=== PATIENT | female | born 1955 | race Caucasian/White ===

== ENCOUNTER → 2018-03-21 | Outpatient (CLI) | payer BC ==
--- NOTE | 2018-03-21 11:21 | PCVCIMAG ---
APPROVED REPORT Study performed: 03/21/2018 09:58:49 Exam: Stress Echocardiogram Indication: CAD s/p CABG X3 (2016) Patient Location: Echo lab Stress Nurse: Jayde Clark RN Status: routine Ht: 5 ft 5 in HR: 64 bpm BP: 114/60 mmHg Rhythm: NSR Medical History Medical History: Diabetes, Hyperlipidemia Procedure The patient underwent an Exercise Stress Test using the Timmy Protocol. Blood pressure, heart rate, and EKG were monitored. An Echocardiogram was performed by cleaning technician in four stages in quad fashion. At peak stress, four selected images were obtained and placed side by side with resting images for comparison. Stress Test Details Stress Test: Exercise stress testing was performed using a Timmy protocol. HR Resting HR: 64 bpmMax Heart Rate (APMHR): 160 bpm Max HR Achieved: 137 bpmTarget HR (85% APMHR): 136 bpm % of APMHR: 85 Recovery HR: 86 bpm HR response to stress: Normal HR response to stress BP Resting BP: 114/60 mmHg Max BP: 156/60 mmHg Recovery BP: 124/62 mmHg BP response to stress: Normal blood pressure response to stress. ECG Resting ECG: Sinus Rhythm Stress ECG: Sinus Rhythm Recovery ECG: Sinus Rhythm Clinical Reason for Termination: Maximal effort Exercise duration: 7 min 04 sec Highest Stage Achieved: Stage 3: 3.4 mph at 14% grade. Exercise capacity: 10.10 METs Overall Exercise Capacity for Age: Average Stress ECG Conclusion ECG: Non-ischemic Clinical: Non-ischemic Pre-Stress Echo The resting Echocardiogram showed normal left ventricular contractility with an estimated Ejection Fraction of about >55%. Normal wall motion in all segments on baseline images. Post-Stress Echo The stress Echocardiogram showed normal left ventricular contractility with an estimated Ejection Fraction of about 60-65%. Normal augmentation of wall motion in all segments on post stress images. Clinical No clinical or ECG evidence for ischemia. Conclusion Clinical Response: Non-ischemic Exercise Capacity: Average Stress ECG Response: Non-ischemic Stress Echo Images: Non-ischemic The left ventricle is normal in size and wall thickness in both the rest and stress images. Other Information Study Quality: Adequate <Conclusion> The left ventricle is normal in size and wall thickness in both the rest and stress images.
== END | disposition home or self-care (01) ==
LOC: PCVCIMAG 09:54
PROVIDERS: ATTEND Internal Medicine Cardiovascular Disease
DX: I10 Essential (primary) hypertension (principal); I25.810 Atherosclerosis of coronary artery bypass graft(s) without angina pectoris; R07.9 Chest pain, unspecified; E78.00 Pure hypercholesterolemia, unspecified; E11.9 Type 2 diabetes mellitus without complications; Z95.1 Presence of aortocoronary bypass graft
CPT/HCPCS: 93325; 93351